=== PATIENT | female | born 2000 | race African-American/Black ===

== ENCOUNTER 2018-07-03 22:56 | Emergency (ER) | payer BC ==
[~2018-07-03] VITALS: Ht 162.6 cm; Wt 65.3 kg
[2018-07-03] MEDS ORDERED: ONDANSETRON PF 4 MG/2 ML VIAL. IV ONE (23:45)
[2018-07-03 23:56] LABS: BASO % 0 % (0-3); EOS # 0.3 x10^3/uL (0.0-0.7); EOS % 3 % (0-3); HEMOGLOBIN 12.9 g/dL (12.0-15.5); LYMPH # 0.8 x10^3/uL (1.0-4.8); LYMPH % 7 % (24-48); MEAN CORPUSCULAR HEMOGLOBIN 30 pg (25-35); MEAN CORPUSCULAR HGB CONC 34 g/dL (31-37); MEAN CORPUSCULAR VOLUME 87 fL (79-100); MONO # 0.4 x10^3/uL (0.0-1.1); MONO % 4 % (0-9); NEUT # 9.8 x10^3uL (1.8-7.7); NEUT % 86 % (31-73); PLATELET COUNT 300 x10^3/uL (140-400); RED BLOOD COUNT 4.35 x10^6/uL (3.50-5.40); RED CELL DISTRIBUTION WIDTH 13.7 % (11.5-14.5); WHITE BLOOD COUNT 11.3 x10^3/uL (4.0-11.0)
[2018-07-04] MEDS ORDERED: METOCLOPRAMIDE HCL 10 MG/2 ML VIAL. IV ONE
[2018-07-04] MEDS ORDERED: PROCHLORPERAZINE 10 MG/2 ML VIAL. IV ONE
[2018-07-04] MEDS ORDERED: IV NORMAL SALINE 1000ML BAG 1,000 ML IV ONE
[2018-07-04 00:04] LABS: CREATININE 1.1 mg/dL (0.6-1.0); GFR 76.6; POTASSIUM 3.7 mmol/L (3.5-5.1); PREG TEST PT QUAL NEGATIVE (NEG)
[2018-07-04 00:22] VITALS: BP 106/58
[2018-07-04 00:44] LABS: % EOS 2 % (0-5); % LYMPHS 12 % (24-48); % MONOS 3 % (0-10); % SEGS 83 % (35-66); PLT ESTIMATE ADEQUATE (ADEQUATE)
[2018-07-04] MEDS ORDERED: LIDOCAINE 1% Multi-Dose 20 ML VIAL. ONE (00:56)
[2018-07-04] MEDS ORDERED: PROC10TA57 PO (01:13)
[2018-07-04] MEDS ORDERED: LIDOCAINE 1% Multi-Dose 20 ML VIAL. INJ ONE (01:30)
--- NOTE | 2018-07-04 04:31 | PHYS DOC ---
Past Medical History Past Medical History: High Cholesterol Past Surgical History: No Surgical History Alcohol Use: None Drug Use: None Adult General Chief Complaint Chief Complaint: CHEST PAIN HPI HPI Patient is a 18 year old female who presents with headache persistent since yesterday. Patient also complains of chest wall pain and is currently on antibiotics for treatment of left breast soft tissue abscess. States she is compliant with therapy and that abscesses previously drained but has reaccumulated. No fever chills, nausea vomiting or sweats. No other acute symptoms or complaints.[] Review of Systems Review of Systems ROS as pre HPI All other systems were reviewed and found to be within normal limits, except as documented in this note. Current Medications Current Medications Current Medications Medications (Trade) Dose Ordered Sig/[place] Start Time Stop Time Status Last Admin Dose Admin Lidocaine HCl (Lidocaine 1% 20ml Vial) 20 ml 1X ONCE 07/04/18 01:30 07/04/18 01:30 DC 07/04/18 01:24 20 ML Metoclopramide HCl (Reglan Vial) 10 mg 1X ONCE 07/04/18 00:00 07/04/18 00:01 DC 07/04/18 00:03 10 MG Ondansetron HCl (Zofran) 4 mg 1X ONCE 07/03/18 23:45 07/03/18 23:47 DC 07/04/18 00:02 4 MG Prochlorperazine Edisylate (Compazine) 10 mg 1X ONCE 07/04/18 00:00 07/04/18 00:01 DC 07/04/18 00:03 10 MG Sodium Chloride 1,000 ml @ 1,000 mls/hr 1X ONCE 07/04/18 00:00 07/04/18 00:59 DC 07/04/18 00:04 1,000 MLS/HR Allergies Allergies Allergies Coded Allergies Type Severity Reaction Last Updated Verified No Known Drug Allergies 07/03/18 No Physical Exam Physical Exam Constitutional: Well developed, well nourished, no acute distress, non-toxic appearance. [] HENT: Normocephalic, atraumatic, bilateral external ears normal, oropharynx moist, no oral exudates, nose normal. [] Eyes: PERRLA, EOMI, conjunctiva normal, no discharge. [] Neck: Normal range of motion, no tenderness, supple, no stridor. [] Cardiovascular:Heart rate regular rhythm, no murmur [] Lungs & Thorax: Bilateral breath sounds clear to auscultation [] Abdomen: Bowel sounds normal, soft, no tenderness,. [] Skin: Left breast medials aspect, 1 cm, superficial cutaneous abscess, no injury patient, streaking or cellulitis. Minimal tenderness. [] Back: No tenderness. [] Extremities: No tenderness, n no edema. [] Neurologic: Alert and oriented X 3, CN 2-12 intact,normal motor function, normal sensory function, no focal deficits noted. [] Psychologic: Affect normal, judgement normal, mood normal. [] Current Patient Data Vital Signs Vital Signs Date Time Temp Pulse Resp B/P (MAP) Pulse Ox O2 Delivery O2 Flow Rate FiO2 07/04/18 00:22 96 20 106/58 (74) 97 Room Air 07/03/18 22:58 98.9 98.9 Lab Values Laboratory Tests Test 07/03/18 23:18 White Blood Count 11.3 x10^3/uL (4.0-11.0) H Red Blood Count 4.35 x10^6/uL (3.50-5.40) Hemoglobin 12.9 g/dL (12.0-15.5) Hematocrit 38.0 % (36.0-47.0) Mean Corpuscular Volume 87 fL (79-100) Mean Corpuscular Hemoglobin 30 pg (25-35) Mean Corpuscular Hemoglobin Concent 34 g/dL (31-37) Red Cell Distribution Width 13.7 % (11.5-14.5) Platelet Count 300 x10^3/uL (140-400) Neutrophils (%) (Auto) 86 % (31-73) H Lymphocytes (%) (Auto) 7 % (24-48) L Monocytes (%) (Auto) 4 % (0-9) Eosinophils (%) (Auto) 3 % (0-3) Basophils (%) (Auto) 0 % (0-3) Neutrophils # (Auto) 9.8 x10^3uL (1.8-7.7) H Lymphocytes # (Auto) 0.8 x10^3/uL (1.0-4.8) L Monocytes # (Auto) 0.4 x10^3/uL (0.0-1.1) Eosinophils # (Auto) 0.3 x10^3/uL (0.0-0.7) Basophils # (Auto) 0.0 x10^3/uL (0.0-0.2) Segmented Neutrophils % 83 % (35-66) H Lymphocytes % 12 % (24-48) L Monocytes % 3 % (0-10) Eosinophils % 2 % (0-5) Platelet Estimate Adequate (ADEQUATE) Sodium Level 134 mmol/L (136-145) L Potassium Level 3.7 mmol/L (3.5-5.1) Chloride Level 101 mmol/L (98-107) Carbon Dioxide Level 29 mmol/L (21-32) Anion Gap 4 (6-14) L Blood Urea Nitrogen 19 mg/dL (7-20) Creatinine 1.1 mg/dL (0.6-1.0) H Estimated GFR (Cockcroft-Gault) 76.6 Glucose Level 92 mg/dL (70-99) Calcium Level 9.0 mg/dL (8.5-10.1) Serum Test, Qualitative Negative (NEG) Laboratory Tests 07/03/18 23:18 Laboratory Tests 07/03/18 23:18 EKG EKG [] Radiology/Procedures Radiology/Procedures [] Course & Med Decision Making Course & Med Decision Making Pertinent Labs and Imaging studies reviewed. (See chart for details) [Headache resolved with treatment. Patient with superficial cutaneous chest wall abscess. Abscess injected with 1% lidocaine without epinephrine and deroofed with a #11 scalpel. Bandage placed on top of deroofed abscess.] Dragon Disclaimer Dragon Disclaimer This electronic medical record was generated, in whole or in part, using a voice recognition dictation system. Departure Departure Impression: Primary Impression: Breast abscess Additional Impression: Headache Disposition: 01 HOME, SELF-CARE Condition: GOOD Patient Instructions: Abscess, General Headache Without Cause Additional Instructions: Please take mdications as needed and follow up with your PCP if symptoms persist. Scripts Prochlorperazine Maleate (Compazine) 10 Mg Tablet 10 MG PO Q8HRS for NAUSEA MDD 3, #10 TAB Prov: STEFANO ZARAGOZA DO 07/04/18 Problem Qualifiers STEFANO ZARAGOZA DO Jul 04, 2018 04:31
--- NOTE | 2018-07-04 06:47 | EKG ---
[facility] [address] [place] [address] Test Date: 2018-07-03 Test Time: 23:01:48 Pat Name: COSME DAILEY Department: Room: Gender: F Kit Assembler: : 2000 Requested By: STEFANO ZARAGOZA Order Number: [id number] Reading MD: Measurements Intervals [place] Rate: 92 P: [place]: QRS: 28 QRSD: 78 T: 9 QT: 334 QTc: 417 Interpretive Statements ACCELERATED JUNCTIONAL RHYTHM ABNORMAL ECG No previous ECG available for comparison
== END 2018-07-04 01:26 | disposition home or self-care (01) ==
LOC: ER 22:56
DX: N61.1 Abscess of the breast and nipple (principal); R07.89 Other chest pain; R51 Headache; E78.00 Pure hypercholesterolemia, unspecified
CPT/HCPCS: 10060; 36415; 80048; 84703; 85007; 85025; 93005; 96374; 96375; 99284; J0780; J2405; J2765; J7030

== ENCOUNTER 2020-12-09 20:30 | Emergency (ER) | payer BC ==
[~2020-12-09] VITALS: Ht 154.9 cm; Wt 59.1 kg
[~2020-12-09 20:30] MED LIST: PROC10TA57 PO
[2020-12-09 20:45] VITALS: BP 141/79
[2020-12-09 21:50] LABS: BASO # 0.1 x10^3/uL (0.0-0.2); BASO % 1 % (0-3); EOS # 0.4 x10^3/uL (0.0-0.7); EOS % 3 % (0-3); HEMOGLOBIN 13.2 g/dL (12.0-15.5); LYMPH # 1.4 x10^3/uL (1.0-4.8); LYMPH % 12 % (24-48); MEAN CORPUSCULAR HEMOGLOBIN 28 pg (25-35); MEAN CORPUSCULAR HGB CONC 34 g/dL (31-37); MEAN CORPUSCULAR VOLUME 83 fL (79-100); MONO # 0.2 x10^3/uL (0.0-1.1); MONO % 2 % (0-9); NEUT # 9.6 x10^3/uL (1.8-7.7); NEUT % 82 % (31-73); PLATELET COUNT 319 x10^3/uL (140-400); RED BLOOD COUNT 4.72 x10^6/uL (3.50-5.40); RED CELL DISTRIBUTION WIDTH 13.8 % (11.5-14.5); WHITE BLOOD COUNT 11.7 x10^3/uL (4.0-11.0)
[2020-12-09 22:01] LABS: CALCIUM 9.3 mg/dL (8.5-10.1); CREATININE 0.8 mg/dL (0.6-1.0); GFR 108.5; POTASSIUM 4.1 mmol/L (3.5-5.1)
[2020-12-09 22:08] LABS: ALBUMIN 4.1 g/dL (3.4-5.0); ALBUMIN/GLOBULIN RATIO 1.2 (1.0-1.7); C-REACTIVE PROTEIN 29.3 mg/L (0-3.3); TOTAL BILIRUBIN 0.6 mg/dL (0.2-1.0); TOTAL PROTEIN 7.4 g/dL (6.4-8.2)
[2020-12-09] MEDS ORDERED: HYDR25CA PO (22:29)
[2020-12-09] MEDS ORDERED: CEPH500C PO (22:29)
--- NOTE | 2020-12-09 22:30 | ED.ADGEN ---
Past Medical History Past Medical History: High Cholesterol Past Surgical History: No Surgical History Smoking Status: Never Smoker Alcohol Use: None Drug Use: None General Adult EDM: Chief Complaint: SKIN PROBLEM HPI: HPI: Patient is a 20 year old female coming in for erythematous rash over her entire body. Patient states she was at work this afternoon when she noticed a sore spot on her arm and hot flashes. She later does who her skin was red. Denies any itching. Says she did not see anything bite or sting her arm. 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 Patient denies any history of allergic reaction to bug bites or stings. States she otherwise has been well. Review of Systems: Review of Systems: All other systems within normal limits except for as noted in the HPI Allergies: Allergies: Allergies Coded Allergies Type Severity Reaction Last Updated Verified No Known Drug Allergies 07/03/18 No Physical Exam: PE: Constitutional: Well developed, well nourished, no acute distress, non-toxic appearance. [] HENT: Normocephalic, atraumatic, bilateral external ears normal, nose normal. [] Eyes: PERRLA, conjunctiva normal, no discharge. [] Neck: No rigidity, supple, no stridor. [] Cardiovascular: Regular rate and rhythm, brisk cap refill [] Lungs & Thorax: Non labored symmetric respirations, no tachypnea or respiratory distress [] Abdomen: Soft, nondistended. Skin: Warm, dry, diffuse erythema, no raised lesions, darker spot on dorsum of left forearm without visible puncture wound, foreign body, fluctuance or drainage Back: Unremarkable Extremities: No deformities, range of motion grossly intact, no lower extremity edema [] Neurologic: Alert and oriented X 3, no focal deficits noted. [] Psychologic: Affect normal, judgement normal, mood normal. [] Current Patient Data: Labs: Laboratory Tests Test 12/09/20 21:40 White Blood Count 11.7 x10^3/uL (4.0-11.0) H Red Blood Count 4.72 x10^6/uL (3.50-5.40) Hemoglobin 13.2 g/dL (12.0-15.5) Hematocrit 39.0 % (36.0-47.0) Mean Corpuscular Volume 83 fL (79-100) Mean Corpuscular Hemoglobin 28 pg (25-35) Mean Corpuscular Hemoglobin Concent 34 g/dL (31-37) Red Cell Distribution Width 13.8 % (11.5-14.5) Platelet Count 319 x10^3/uL (140-400) Neutrophils (%) (Auto) 82 % (31-73) H Lymphocytes (%) (Auto) 12 % (24-48) L Monocytes (%) (Auto) 2 % (0-9) Eosinophils (%) (Auto) 3 % (0-3) Basophils (%) (Auto) 1 % (0-3) Neutrophils # (Auto) 9.6 x10^3/uL (1.8-7.7) H Lymphocytes # (Auto) 1.4 x10^3/uL (1.0-4.8) Monocytes # (Auto) 0.2 x10^3/uL (0.0-1.1) Eosinophils # (Auto) 0.4 x10^3/uL (0.0-0.7) Basophils # (Auto) 0.1 x10^3/uL (0.0-0.2) Sodium Level 140 mmol/L (136-145) Potassium Level 4.1 mmol/L (3.5-5.1) Chloride Level 102 mmol/L (98-107) Carbon Dioxide Level 23 mmol/L (21-32) Anion Gap 15 (6-14) H Blood Urea Nitrogen 19 mg/dL (7-20) Creatinine 0.8 mg/dL (0.6-1.0) Estimated GFR (Cockcroft-Gault) 108.5 BUN/Creatinine Ratio 24 (6-20) H Glucose Level 95 mg/dL (70-99) Calcium Level 9.3 mg/dL (8.5-10.1) Total Bilirubin 0.6 mg/dL (0.2-1.0) Aspartate Amino Transferase (AST) 19 U/L (15-37) Alanine Aminotransferase (ALT) 25 U/L (14-59) Alkaline Phosphatase 83 U/L (46-116) C-Reactive Protein, Quantitative 29.3 mg/L (0-3.3) H Total Protein 7.4 g/dL (6.4-8.2) Albumin 4.1 g/dL (3.4-5.0) Albumin/Globulin Ratio 1.2 (1.0-1.7) Laboratory Tests 12/09/20 21:40 Laboratory Tests 12/09/20 21:40 Vital Signs: Vital Signs Date Time Temp Pulse Resp B/P (MAP) Pulse Ox O2 Delivery O2 Flow Rate FiO2 12/09/20 20:45 98.6 88 13 141/79 (99) 96 Room Air 98.6 EKG: EKG: [] Heart Score: C/O Chest Pain: No Risk Factors: Risk Factors: DM, Current or recent (<one month) smoker, HTN, HLP, family history of CAD, obesity. Risk Scores: Score 0 - 3: 2.5% MACE over next 6 weeks - Discharge Home Score 4 - 6: 20.3% MACE over next 6 weeks - Admit for Clinical Observation Score 7 - 10: 72.7% MACE over next 6 weeks - Early Invasive Strategies Radiology/Procedures: Radiology/Procedures: [] Course & Med Decision Making: Course & Med Decision Making Patient well-appearing, labs consistent with allergic reaction, concern for possible bacteremia due to puncture. Dragon Disclaimer: Dragon Disclaimer: This electronic medical record was generated, in whole or in part, using a voice recognition dictation system. Departure Departure Impression: Primary Impression: Allergic reaction Disposition: HOME / SELF CARE / HOMELESS Condition: STABLE Referrals: JABARI NARAYANAN MD (PCP) Patient Instructions: Rash Scripts Hydroxyzine Pamoate (VISTARIL) 25 Mg Capsule 1 CAP PO TID PRN for RASH for 5 Days, #15 CAP 1 Refill Prov: JONATHAN HOLCOMB MD 12/09/20 Cephalexin (CEPHALEXIN) 500 Mg Capsule 1 CAP PO TID for antibiotic for 5 Days, #15 CAP Prov: JONATHAN HOLCOMB MD 12/09/20 JONATHAN HOLCOMB MD Dec 09, 2020 22:30
== END 2020-12-09 22:33 | disposition home or self-care (01) ==
LOC: ER 20:30
DX: T78.40XA Allergy, unspecified, initial encounter (principal); E78.00 Pure hypercholesterolemia, unspecified
CPT/HCPCS: 36415; 80053; 85025; 86140; 99283